=== PATIENT | female | born 1980 | race Asian ===

== ENCOUNTER 2022-09-15 18:28 | Emergency (ER) | payer OTHER ==
[2022-09-15] VITALS (9 sets, daily range): BP systolic 110–141; BP diastolic 71–112
[2022-09-15] MEDS ORDERED: PREDNISONE20 MG PO (21:06)
[2022-09-15] MEDS ORDERED: BENADRYL 25MG C25 MG PO (21:06)
== END 2022-09-15 21:20 | disposition home or self-care (01) | DRG 918 ==
LOC: ED 18:28
DX: T63.421A Toxic effect of venom of ants, accidental (unintentional), initial encounter (principal); R21 Rash and other nonspecific skin eruption